=== PATIENT | male | born 1960 | race African-American/Black ===

== ENCOUNTER 2020-02-18 13:37 | Emergency (ER) | payer OTHER ==
[~2020-02-18] VITALS: Ht 170.2 cm; Wt 102.1 kg
[2020-02-18 13:37] VITALS: BP_SYST 175
[2020-02-18] MEDS ORDERED: cloNIDine HCL 0.1 MG TABLET PO ONE (14:45)
[2020-02-18 14:57] VITALS: BP_SYST 185
== END 2020-02-18 15:00 ==
LOC: EDBD 13:37 → SED 13:37
DX: Z13.30 Encounter for screening examination for mental health and behavioral disorders, unspecified (principal)
CPT/HCPCS: 99285